=== PATIENT | male | born 1980 | race Caucasian/White ===

== ENCOUNTER 2017-08-18 23:29 | Emergency (ER) | payer BC, OTHER ==
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
[2017-08-19] MEDS ORDERED: Adacel Vial IM ONE ×2 (01:23→01:39)
[2017-08-19] MEDS ORDERED: HYDROCODONE-ACETAMIN 2.5-108/5 ML SOLUTION PO STA (03:09)
[2017-08-19] MEDS ORDERED: HYDROCODONE-ACETAMIN 2.5-108/5 ML SOLUTION ONE (03:11)
[2017-08-19 03:45] VITALS: BP 133/64; PULSE 65; O2SAT 98
--- NOTE | 2017-08-19 09:06 | XRAY ---
Indication: Right-sided pain following fall. Multiple contiguous axial images obtained through the head without contrast. Comparison: None Ventriculosulcal pattern appears symmetric. No acute intracranial hemorrhage, abnormal extra-axial fluid collection, or mass effect. Fourth ventricle is midline. Stubbs-white matter differentiation preserved. Bony calvarium intact. Mastoid air cells clear. CT facial bones and CT cervical spine reported separately. Impression: No acute intracranial abnormalities. Comment: Preliminary interpretation was made by [facility]. No discrepancy. CTDI 50.00
--- NOTE | 2017-08-19 09:10 | XRAY ---
Indication: Right facial trauma following fall. Multiple contiguous axial images obtained through the cervical spine. Sagittal and coronal reformatted images obtained. Comparison: None Axial images negative for acute fracture, suspicious bony lesions, or spinal canal stenosis. Minimal C3-C4 degenerative endplate spurring. Sagittal and coronal reformatted images demonstrates cervical lordotic straightening, positional versus paraspinal spasm. Minimal C3-C4 disc space narrowing. No acute compression fracture, subluxation, or jumped facet. Visualized noncontrasted soft tissues including lung apices unremarkable. CT facial bones and CT head reported separately. Impression: Cervical lordotic stranding, positional versus paraspinal spasm. Negative acute fracture/subluxation. C3-C4 degenerative disc disease. Comment: Preliminary interpretation was made by [facility]. No discrepancy. CTDI 116.95
--- NOTE | 2017-08-19 09:18 | XRAY ---
Indication: Right facial trauma following fall. Multiple contiguous axial images obtained through the facial bones. Sagittal and coronal reformatted images obtained. Comparison: None There is right zygomatic arch depressed fracture with right facial soft tissue swelling. Lesser depressed fracture seen of the anterior and lateral wall of the right maxillary sinus with small maxillary sinus fluid leveling. Minimally depressed fracture seen of the lateral wall of the right orbit with minimal effacement of the lateral rectus extraocular muscle and subsequent disconjugate gaze. Small bilateral maxillary sinus polyp/retention cysts, largest on the left measure 1.7 cm. Frontal, ethmoid, and sphenoid sinuses clear. CT cervical spine and CT head reported separately. Impression: 1. Fractures of the anterior/lateral abreu of the right maxillary sinus, right zygomatic arch, and lateral wall of the right orbit as detailed. The right orbital wall fracture minimally effaces the lateral rectus extraocular muscle with subsequent disconjugate gaze. 2. Right maxillary sinus fluid leveling probably blood. 3. Incidental bilateral maxillary sinus polyps/retention cysts. Comment: Preliminary interpretation was made by [facility]. No discrepancy. CTDI 59.47
== END 2017-08-19 03:46 | disposition home or self-care (01) ==
LOC: ED 23:29
DX: S02.81XA Fracture of other specified skull and facial bones, right side, initial encounter for closed fracture (principal); S02.40EA Zygomatic fracture, right side, initial encounter for closed fracture; S02.40CA Maxillary fracture, right side, initial encounter for closed fracture; W19.XXXA Unspecified fall, initial encounter
CPT/HCPCS: 70450; 70486; 72125; 90471; 90715; 99284

== ENCOUNTER 2020-07-27 17:00 | Observation (INO) | payer OTHER ==
[2020-07-27 18:17] LABS: Absolute Neutrophil Ct (ANC) 6.56 (1.4-6.9); BASOPHIL % 0.3 % (0.0-0.4); Basophil (Absolute #) 0.03 (0-0.4); Eosinophil % 1.3 % (0.00-5.0); Eosinophil (Absolute #) 0.14 (0-0.5); Hematocrit 40.7 % (42-50); Hemoglobin 13.6 gm/dl (12.5-18.0); Lymphocytes % 23.8 % (24.0-44.0); Mean Cell Volume 88.7 fl (78-100); Mean Corpuscular Hemoglobin 29.6 pg (26-32); Mean Corpuscular Hgb Concent. 33.4 g/dl (32-36); Mean Platelet Volume 8.6 fl (7.5-11.0); Monocyte (Absolute #) 1.29 (0.0-1.3); Monocytes % 12.3 % (0.0-12.0); Neutrophil % 62.3 % (36.0-66.0); Platelet Count 247 K/mm3 (150-450); Red Blood Count 4.59 M/mm3 (4.1-5.6); Red Cell Distribution Width 12.5 % (11.5-14.0); White Blood Count 10.5 K/mm3 (4.0-10.5)
[2020-07-27] MEDS ORDERED: MORPHINE SULFATE 10 MG/ML IV PRN (18:29)
[2020-07-27] MEDS ORDERED: Zofran 4 MG/2 ML VIAL IV PRN (18:29)
[2020-07-27 18:32] LABS: ALBUMIN 4.2 g/dL (3.5-5.0); ALKALINE PHOSPHATASE 69 U/L (38-126); ANION GAP 7.8 MEQ/L (5-15); BLOOD UREA NITROGEN 14 mg/dL (9-20); CHLORIDE 106 mmol/L (98-107); Calcium 8.8 mg/dL (8.4-10.2); Carbon Dioxide 28 mmol/L (22-30); Creatinine 1 0.88 mg/dL (0.66-1.25); EST GLOMERULAR FILTRATION RATE > 60.0 ML/MIN; Glucose 110 mg/dL (74-106); Potassium 4.2 mmol/L (3.5-5.1); SGOT/AST 34 U/L (17-59); SGPT/ALT 21 U/L (0-50); SODIUM 137 mmol/L (137-145); Total Protein 7.1 g/dL (6.3-8.2)
[2020-07-27] MEDS: Cyclobenzaprine 10 MG PO PRN (18:53)
[2020-07-27] MEDS: OXYCODONE-ACETAMINOPHEN 10-325 PO PRN (18:53)
[2020-07-28] MEDS: OXYCODONE-ACETAMINOPHEN 10-325 PO PRN ×4 (03:20→22:15)
[2020-07-28] MEDS: Cyclobenzaprine 10 MG PO PRN ×3 (03:20→22:14)
[2020-07-28] MEDS ORDERED: Colace 100 MG PO PRN (08:40)
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
[2020-07-28] MEDS ORDERED: Miralax Powder 17GM PACKET PO PRN (08:45)
--- NOTE | 2020-07-28 08:47 | XRAY ---
Indication: Follow-up hemothorax and pneumothorax. Comparison: One day earlier. PA/lateral chest demonstrates new CT proven right base pulmonary contusion/atelectasis. Remaining chest unchanged again demonstrating nondisplaced right 10/11 rib fractures, small right hemothorax, and tiny right pneumothorax. Heart and mediastinal structures within normal limits.
--- NOTE | 2020-07-28 08:49 | PCM.HP.ADD ---
Addendum to History & Physical - History & Physical Addendum Addendum to History & Physical: This certifies that the History & Physical in the electronic chart reflects the current health status of the patient. If there are changes in the H&P these changes/exceptions are listed as follows.
--- NOTE | 2020-07-28 08:54 | PCM.NOTE ---
Date and Time: 07/28/20 0849 Subjective Assessment: Pt was found to have tiny pneumothorax and tiny hemothorax so was admitted with O2 ordered. He had coughed up blood yesterday prior to admission. Required percocet and flexeril x 2 last night. Feeling better today. Still having a hard time taking a deep breath. His O2 was off this morning and his wi fe stated it had not been on since last night, despite the order in the chart. Pt is constipated, last BM 3d ago. Abd u/s was done yesterday and liver and spleen were wnl. Pt notes erythema on R hand with mildly decreased edema. - Review of Systems Cardiac: Chest Pain Musculoskeletal: Back Pain Objective Exam General Appearance: mild distress, alert Neurologic Exam: oriented x 3, cooperative Skin Exam: normal color, warm, dry, No rash Respiratory Exam: lungs clear, diminished breath sounds (in RLL), No prolonged expirations, No crackles/rales, No rhonchi, No wheezing Cardiovascular Exam: regular rate/rhythm, normal heart sounds, No murmur Gastrointestinal/Abdomen Exam: soft, normal bowel sounds, tenderness (mild, RUQ (decreased from yesterday)) Extremity Exam: other (R hand with edema (decreased from yesterday); there is mild macular erythema distal dorsum of hand), No pedal edema Back Exam: normal inspection, No rash OBJECTIVE DATA Vital Signs: Vital Signs - 24 hr Temp Pulse Resp BP Pulse Ox 07/28/20 07:32 98.0 F 73 16 112/65 98 07/28/20 03:25 97.9 F 67 18 118/70 97 07/28/20 00:00 96.7 F 66 20 107/62 96 07/27/20 20:00 98.1 F 75 20 125/62 96 07/27/20 19:12 94 L 07/27/20 17:56 96 07/27/20 17:19 98.5 F 71 20 141/83 97 Pain Assessment - Last Documented Pain Intensity 0 Pain Scale Used [facility] Intake and Output: Intake & Output 07/25/20 07/26/20 07/27/20 07/28/20 12:59 11:59 11:59 11:59 Intake Total 800 Balance 800 Weight 67.2 kg Lab Results: Lab Results-Last 24 Hours 11/02/20 11/02/20 Range/Units 18:10 18:10 WBC 10.5 (4.0-10.5) K/mm3 RBC 4.59 (4.1-5.6) M/mm3 Hgb 13.6 (12.5-18.0) gm/dl Hct 40.7 L (42-50) % MCV 88.7 (78-100) fl MCH 29.6 (26-32) pg MCHC 33.4 (32-36) g/dl RDW 12.5 (11.5-14.0) % Plt Count 247 (150-450) K/mm3 MPV 8.6 (7.5-11.0) fl Gran % 62.3 (36.0-66.0) % Eos # (Auto) 0.14 (0-0.5) Absolute Lymphs (auto) 2.50 (1.0-4.6) Absolute Monos (auto) 1.29 (0.0-1.3) Lymphocytes % 23.8 L (24.0-44.0) % Monocytes % 12.3 H (0.0-12.0) % Eosinophils % 1.3 (0.00-5.0) % Basophils % 0.3 (0.0-0.4) % Absolute Granulocytes 6.56 (1.4-6.9) Basophils # 0.03 (0-0.4) Sodium 137 (137-145) mmol/L Potassium 4.2 (3.5-5.1) mmol/L Chloride 106 (98-107) mmol/L Carbon Dioxide 28 (22-30) mmol/L Anion Gap 7.8 (5-15) MEQ/L BUN 14 (9-20) mg/dL Creatinine 0.88 (0.66-1.25) mg/dL Estimated GFR > 60.0 ML/MIN Glucose 110 H (74-106) mg/dL Calcium 8.8 (8.4-10.2) mg/dL Total Bilirubin 0.60 (0.2-1.3) mg/dL AST 34 (17-59) U/L ALT 21 (0-50) U/L Alkaline Phosphatase 69 (38-126) U/L Serum Total Protein 7.1 (6.3-8.2) g/dL Albumin 4.2 (3.5-5.0) g/dL Radiology Exams: Radiology Procedures Category Date Time Status CHEST 2 VIEWS (PA AND LAT) Routine Exams 07/28/20 07:00 Taken CHEST WITHOUT CONTRAST [CT] Routine Exams 07/27/20 17:35 Taken Assessment/Plan (1) Pneumothorax Current Visit: Yes Status: Acute Qualifiers: Pneumothorax type: traumatic Encounter type: subsequent encounter Qualified Code(s): S27.0XXD - Traumatic pneumothorax, subsequent encounter Assessment & Plan: Repeat CXR done this morning. O2 placed on pt. Code(s): J93.9 - PNEUMOTHORAX, UNSPECIFIED (2) Hemothorax Current Visit: Yes Status: Acute Code(s): J94.2 - HEMOTHORAX (3) Ribs, multiple fractures Current Visit: Yes Status: Acute Qualifiers: Encounter type: subsequent encounter Fracture type: closed Laterality: right Fracture healing: with routine healing Qualified Code(s): S22.41XD - Multiple fractures of ribs, right side, subsequent encounter for fracture with routine healing Code(s): S22.49XA - MULTIPLE FRACTURES OF RIBS, UNSP SIDE, INIT FOR CLOS FX (4) Cellulitis of hand Current Visit: Yes Status: Acute Assessment & Plan: Will start pt on IV antibiotic here (rocephin) with home on augmentin when he is discharged. Code(s): L03.119 - CELLULITIS OF UNSPECIFIED PART OF LIMB
[2020-07-28] MEDS: ROCEPHIN 1 Gm-D5w 50 ml Bag** 1 G/50 ML IVPB IV SCH (10:44)
[2020-07-29] MEDS: OXYCODONE-ACETAMINOPHEN 10-325 PO PRN (08:19)
[2020-07-29 08:24] VITALS: BP 123/60; PULSE 67
[2020-07-29] MEDS ORDERED: Adacel Vial IM ONE (08:43)
--- NOTE | 2020-07-29 08:43 | XRAY ---
Indication: Follow-up hemothorax/pneumothorax. Comparison: One day earlier. PA/lateral chest unchanged again demonstrating right 10/11 rib fractures, small right hemothorax with right base pulmonary contusion/atelectasis, and tiny right pneumothorax. Heart is not enlarged. No new cardiopulmonary abnormalities.
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
[2020-07-29] MEDS: ROCEPHIN 1 Gm-D5w 50 ml Bag** 1 G/50 ML IVPB IV SCH (09:37)
[2020-07-29 11:00] VITALS: O2SAT 96
== END 2020-07-29 11:30 | disposition home or self-care (01) ==
LOC: MED SURG 17:03
PROVIDERS: ADMIT Family Medicine; ATTEND Family Medicine
DX: J93.9 Pneumothorax, unspecified (principal); J94.2 Hemothorax; S22.41XA Multiple fractures of ribs, right side, initial encounter for closed fracture; Y04.0XXA Assault by unarmed brawl or fight, initial encounter; L03.113 Cellulitis of right upper limb; M79.641 Pain in right hand; R10.11 Right upper quadrant pain; R07.81 Pleurodynia
CPT/HCPCS: 36415; 71046; 71250; 80053; 85025; 93268; 94760; 94762; G0378; 90715; J0696; A9270-GY